=== PATIENT | female | born 1980 | race Caucasian/White ===

== ENCOUNTER 2023-01-31 13:07 | Emergency (ER) | payer MEDICAID, SELFPAY ==
[2023-01-31] VITALS (13 sets, daily range): BP systolic 125–153; BP diastolic 75–114; PULSE 82–109; RESP 18–22; TEMP 36.4; O2SAT 99–100; BMI 26.6
--- NOTE | 2023-01-31 13:53 | CRLHL7_ITS ---
For Patients: As a result of the Cures Act, medical imaging exams and procedure reports are released immediately into your electronic medical record. You may view this report before your referring provider. If you have questions, please contact your health care provider. 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 TECHNIQUE: Left wrist 3 view. COMPARISON: None. FINDINGS: A true lateral view was not provided. There is subluxation/dislocation of the carpus relative to the radius. Acute mildly displaced fracture of the ulnar styloid process. There are small fracture fragments adjacent to the scaphoid and triquetrum. There appears to be rotation of the lunate with widening of the scapholunate interval. Questionable subtle lucency in the base of the 2nd metacarpal may represent a nondisplaced fracture. Soft tissue swelling in the distal forearm, wrist, and hand. IMPRESSION: 1. Subluxation/dislocation of the carpus relative to the radius. 2. Acute mildly displaced fracture of the ulnar styloid process. 3. Possible nondisplaced fracture in the base of the 2nd metacarpal. 4. Small fracture fragments about the scaphoid and triquetrum. Dictated by Veronica Perdue MD @ 01/31/2023 2:54:35 PM (Electronically Signed)
[2023-01-31] MEDS: 0.9 % SODIUM CHLORIDE 1000 ml 1,000 ML IV (13:58)
[2023-01-31] MEDS: HYDROmorphone 0.5 mg/0.5 ml inj 1 MG IVP ×2 (13:58→14:15)
[2023-01-31 14:01] LABS: Basophils Absolute Auto 0.04 K/uL (0.00-0.30); Basophils Percent Auto 0.6 % (0.0-3.0); Eosinophils Absolute Auto 0.09 K/uL (0.00-0.50); Eosinophils Percent Auto 1.3 % (0.0-7.0); Hematocrit 31.9 % (33.0-51.0); Hemoglobin* 10.1 gm/dL (12.0-16.0); Immature Granulocytes Abs Auto 0.01 K/uL (0.00-0.30); Immature Granulocytes Pct Auto 0.1 %; Lymphocytes Absolute Auto 1.91 K/uL (0.90-2.90); Lymphocytes Percent Auto 27.4 % (20-44); Mean Corpuscular HGB Conc 32 gm/dL (32-36); Mean Corpuscular Hemoglobin 26 pg (26-34); Mean Corpuscular Volume 82 fL (80-100); Monocytes Percent Auto 5.3 % (0.0-11.0); Neutrophils Absolute Auto 4.54 K/uL (1.7-7.0); Neutrophils Percent Auto 65.3 % (42.0-72.0); Platelet Count* 232 K/uL (140-440); RDW Coefficient of Variation % 14.5 % (11.5-15.5); White Blood Count* 6.96 K/uL (4.50-11.00)
[2023-01-31 14:03] LABS: Slide Review Reflex No
--- NOTE | 2023-01-31 14:12 | ED_ITS ---
HPI - General Adult General Chief complaint: Extremity Pain/Injury, Upper Stated complaint: Possible broken L wrist Time Seen by Provider: 01/31/23 13:11 Source: patient Mode of arrival: ambulatory Limitations: no limitations History of Present Illness HPI narrative: Jigna is a 42-year-old female no past medical history presents emerged department from work with a friend with a left wrist injury. 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 Related Data Home Medications Medication Instructions Recorded Confirmed No Known Home Medications 01/31/23 01/31/23 Allergies Allergy/AdvReac Type Severity Reaction Status Date / Time Sulfa (Sulfonamide Allergy Mild Hives Verified 01/31/23 13:41 Antibiotics) Review of Systems Status of ROS: Reports: 10 or more systems reviewed and unremarkable except as noted in History and below Exam Narrative: Exam Narrative: General: Obvious distress, non toxic HEENT: Perrl, EOMI Neck: supple Lungs: CTAB/L Heart: NSR, S1S2 Extremity: left upper extremity, normal range of motion on extension/flexion elbow, patient can supinate and pronate. swelling and redness, circumferential, surround the wrist and hand, with doppler radial pulses patent, small abrasion radial and ulna side, no open fracture no range of motion. Anterior and posterior compartments soft. Neuro: CMS intact in the median, ulna and radial nerve distribution. Const: Vital Signs, click to edit/add: Vital Signs - 24 hr 01/31/23 13:33 01/31/23 13:37 01/31/23 13:57 Temperature 97.6 F Pulse Rate 82 Pulse Rate [Pulse Oximeter] 109 H Respiratory Rate 22 Blood Pressure 138/96 H Blood Pressure [Ri ght Upper Arm] 125/75 Pulse Oximetry 99 99 100 Oxygen Delivery Me thod Room Air Room Air 01/31/23 13:58 01/31/23 14:00 01/31/23 14:01 Temperature Pulse Rate 86 88 95 Pulse Rate [Pulse Oximeter] Respiratory Rate Blood Pressure 135/88 Blood Pressure [Ri ght Upper Arm] Pulse Oximetry 99 99 99 Oxygen Delivery Me thod 01/31/23 14:11 01/31/23 14:43 01/31/23 14:53 Temperature Pulse Rate Pulse Rate [Pulse Oximeter] 88 Respiratory Rate 21 Blood Pressure Blood Pressure [Ri ght Upper Arm] 138/96 H 146/99 H 142/96 H Pulse Oximetry 99 100 Oxygen Delivery Me thod Room Air 01/31/23 15:13 01/31/23 15:23 01/31/23 15:43 Temperature Pulse Rate Pulse Rate [Pulse Oximeter] Respiratory Rate Blood Pressure Blood Pressure [Ri ght Upper Arm] 141/114 H 149/104 H 153/104 H Pulse Oximetry 99 99 Oxygen Delivery Me thod Room Air Room Air 01/31/23 16:00 Temperature Pulse Rate Pulse Rate [Pulse Oximeter] Respiratory Rate 18 Blood Pressure Blood Pressure [Ri ght Upper Arm] 145/95 H Pulse Oximetry 100 Oxygen Delivery Me thod Room Air Course Course Hospital Course: 1:30 PM: AIDET performed, workup will include IV peripheral, 1 mg IV Dilaudid for pain, will obtain imaging including XR wrist 2-3 views, will obtain CBC, CRP and CK. Rule out fracture/dislocation based on history and physical exam. Differential diagnosis include but not limited to fracture, sprain, contusion, dislocation, vascular damage, nerve damage ligament damage tendon damage as well as life-threatening compartment syndrome. XR wrist 3 views: IMPRESSION: 1. Subluxation/dislocation of the carpus relative to the radius. 2. Acute mildly displaced fracture of the ulnar styloid process. 3. Possible nondisplaced fracture in the base of the 2nd metacarpal. 4. Small fracture fragments about the scaphoid and triquetrum. 2:15 p.m.: Patient given additional 1 mg IV Dilaudid, based on imaging results plan to do close reduction of fracture dislocation, patient to sign consent form, Dr. Art, to perform the sedation. Please see sedation record. Plan to use Proprofol. CBC showed no leukocytosis, CRP was negative, mildly elevated CK at 167, patient is feeling better after above care given. Will continue to monitor. Reevaluation(s) Reevaluation #1: 3:30 PM: Patient given additional fentanyl 50 mcg for pain. 4:00 PM: Discussed with orthopedics Dr. Mccray, he recommended transfer to a hand surgeon, plan to call [facility]. Closed reduction performed. please see Procedure note. Patient tolerated procedure well, pain is improved significantly. XR wrist 3 views: Impression: Alignment is improved but there is a lunate dislocation. There is also an avulsion fracture noted probably arising from the lunate. There is an ulnar styloid fracture. Urgent orthopedic consultation is advised. Reevaluation #2: 4:30 PM: spoke with ED physician Dr. Graham, accepts care of the patient. patient to go via private car. Vital Signs Vital signs: Initial Vital Signs Pulse Oximetry 99 01/31/23 13:33 Oxygen Delivery Method Room Air 01/31/23 13:33 Vital Signs Pulse Oximetry 99 01/31/23 13:33 Oxygen Delivery Method Room Air 01/31/23 13:33 Temperature 97.6 F 01/31/23 13:37 Pulse Rate 88 01/31/23 14:43 Respiratory Rate 18 01/31/23 16:00 Blood Pressure 145/95 H 01/31/23 16:00 Pulse Oximetry 100 01/31/23 16:00 Oxygen Delivery Method Room Air 01/31/23 16:00 Medical Decision Making Lab Data Labs: Lab Results 01/31/23 Range/Units 13:55 WBC 6.96 (4.50-11.00) K/uL RBC 3.90 L (4.00-5.20) m/uL Hgb 10.1 L (12.0-16.0) gm/dL Hct 31.9 L (33.0-51.0) % MCV 82 (80-100) fL MCH 26 (26-34) pg MCHC 32 (32-36) gm/dL RDW Coeff of Raymond 14.5 (11.5-15.5) % Plt Count 232 (140-440) K/uL Neut % (Auto) 65.3 (42.0-72.0) % Lymph % (Auto) 27.4 (20-44) % Webster % (Auto) 5.3 (0.0-11.0) % Eos % (Auto) 1.3 (0.0-7.0) % Baso % (Auto) 0.6 (0.0-3.0) % Neut # (Auto) 4.54 (1.7-7.0) K/uL Lymph # (Auto) 1.91 (0.90-2.90) K/uL Webster # (Auto) 0.40 (0.00-0.90) K/UL Eos # (Auto) 0.09 (0.00-0.50) K/uL Baso # (Auto) 0.04 (0.00-0.30) K/uL Sodium 136 (135-149) mmol/L Potassium 4.0 (3.6-5.1) mmol/L Chloride 101 (96-114) mmol/L Carbon Dioxide 27 (20-32) mmol/L BUN 16 (5-24) mg/dL Creatinine 0.7 (0.5-1.5) mg/dL Estimated Creat Clear 103.89 Estimated GFR 112 ml/min Glucose 119 H (60-115) mg/dL Calcium 8.6 (8.4-10.6) mg/dL Total Bilirubin 0.2 (0.1-1.5) mg/dL AST 28 (12-35) U/L ALT 23 (4-35) U/L Alkaline Phosphatase 65 (40-150) U/L Total Creatine Kinase 167 H (41-117) U/L C-Reactive Protein < 0.5 L (0.5-1.0) mg/dL Total Protein 7.2 (6.0-8.3) g/dL Albumin 4.4 (3.3-5.0) g/dL Discharge Plan Discharge Clinical Impression: Closed perilunate dislocation of left wrist Patient Disposition: Home w/ Parent or Adult Condition: Improved Additional Instructions: Please go directly to [facility] Emergency Department. They are expecting you. Dr. Stahl in orthopedics is aware of your case. Activity Level: Light activity Discharge Diet: Regular Prescriptions: No Action No Known Home Medications Follow Up/Referrals: Provider,Not a Local [Primary Care Provider] - Stand Alone Forms: [employer] Info Instructions Procedures Orthopedic Joint Reduction Joint #1: Written consent by: patient Time Out Performed: Yes Side: left Joint Reduction Location: wrist Manipulation used?: Yes Analgesia: procedural sedation Technique used: traction/counter-traction Post Reduction X-Ray Results: reduced Splint Applied: Yes Patient Tolerated Procedure: well
[2023-01-31 14:15] LABS: Chloride* 101 mmol/L (96-114)
[2023-01-31 14:16] LABS: Albumin* 4.4 g/dL (3.3-5.0); Sodium* 136 mmol/L (135-149)
[2023-01-31 14:19] LABS: Alanine Aminotransferase* 23 U/L (4-35); Alkaline Phosphatase* 65 U/L (40-150); Aspartate Amino Transferase* 28 U/L (12-35); Bilirubin Total* 0.2 mg/dL (0.1-1.5); Blood Urea Nitrogen* 16 mg/dL (5-24); Carbon Dioxide* 27 mmol/L (20-32); Creatine Kinase* 167 U/L (41-117); Creatinine* 0.7 mg/dL (0.5-1.5); Est. Creatinine Clearance* 103.89; Estimated Glomerular Filt Rate 112 ml/min; Glucose* 119 mg/dL (60-115); Total Protein* 7.2 g/dL (6.0-8.3)
[2023-01-31 14:20] LABS: Calcium* 8.6 mg/dL (8.4-10.6)
[2023-01-31 14:28] LABS: C Reactive Protein* < 0.5 mg/dL (0.5-1.0)
--- NOTE | 2023-01-31 14:35 | CRLHL7_ITS ---
For Patients: As a result of the Cures Act, medical imaging exams and procedure reports are released immediately into your electronic medical record. You may view this report before your referring provider. If you have questions, please contact your health care provider. Indication: Trauma. Technique: Two views of the left forearm. Views. Comparison: None. Findings: Bones: Redemonstrated dislocation at the radiocarpal joint. Ulnar styloid process fracture is again identified.. No fracture dislocations in the proximal forearm. Joint spaces: Unremarkable. Soft tissues: Soft tissue swelling surrounding the fracture dislocation site.. Impression: Redemonstrated dislocation and ulnar styloid process fracture at the distal forearm. No proximal forearm fractures or dislocations. Dictated by Mark Bernal MD @ 01/31/2023 3:25:21 PM (Electronically Signed)
--- NOTE | 2023-01-31 14:38 | ED.NURSE ---
Doppler ultra sound used to detect left radial pulse. Pulse audible through doppler and reading 103 bpm.
[2023-01-31] MEDS: PROPOFOL 10 MG/ML INJ 100 MG IVP ×2 (15:20→15:30)
[2023-01-31] MEDS: fentaNYL 100 MCG/2 ML inj 50 MCG IVP ×2 (15:25)
[2023-01-31] MEDS: 0.9 % SODIUM CHLORIDE 500 ML 500 ML IV (15:25)
--- NOTE | 2023-01-31 15:42 | CRLHL7_ITS ---
For Patients: As a result of the Century Cures Act, medical imaging exams and procedure reports are released immediately into your electronic medical record. You may view this report before your referring provider. If you have questions, please contact your health care provider. Indication: Reduced dislocation Technique: During images of the left wrist were obtained through cast. Comparison: Earlier the same day Findings: Cast material obscures osseous detail. Alignment has been improved but there are findings of a lunate dislocation. There also appears to be an avulsion fracture probably arising from the lunate and there is an ulnar styloid fracture. This dislocation is considered unstable and generally require urgent reduction and urgent surgical repair. I discussed this case with Dr. Navas at 5:20 p.m. on January 29, 2023. It was confirmed that the patient was sent for tertiary treatment with orthopedic Impression: Alignment is improved but there is a lunate dislocation. There is also an avulsion fracture noted probably arising from the lunate. There is an ulnar styloid fracture. Urgent orthopedic consultation is advised. Dictated by Kel Almanza MD @ 01/31/2023 5:24:48 PM (Electronically Signed)
[2023-01-31] MEDS: fentaNYL 100 MCG/2 ML inj 50 MCG IV (16:56)
--- NOTE | 2023-03-25 08:25 | ED.NURSE ---
chart accessed per dr hernandez' request.
== END 2023-01-31 17:02 | disposition home or self-care (01) ==
PROVIDERS: Emergency Provider Student in an Organized Health Care Education/Training Program
DX: S63.035A Dislocation of midcarpal joint of left wrist, initial encounter (principal); W31.9XXA Contact with unspecified machinery, initial encounter; V83.5XXA Driver of special industrial vehicle injured in nontraffic accident, initial encounter
CPT/HCPCS: 36415; 73090; 73100; 73110; 80053; 82550; 85025; 86140; 93005; 96365; 96375; 96376; 99283; 99284; J1170; J2704; J3010; J7030; J7120